=== PATIENT | female | born 1940 | race Caucasian/White ===

== ENCOUNTER 2016-03-26 11:42 | Inpatient (IN) | payer MEDICARE ==
[2016-03-27] MEDS ORDERED: EXEN1INJ2 SQ (12:02)
[2016-03-27] MEDS ORDERED: LISI-519 PO (12:02)
[2016-03-27] MEDS ORDERED: LATA0.002 EACH EYE (12:02)
[2016-03-27] MEDS ORDERED: TIMO0.5S30 EACH EYE (12:02)
[2016-03-27] MEDS ORDERED: ROSU10 PO (12:02)
[2016-03-27] MEDS ORDERED: MULTTAB24 PO (12:02)
[2016-04-01] VITALS (12 sets, daily range): BP systolic 110–157; BP diastolic 54–70; PULSE 54–84; RESP 10–18; TEMP 97.4–99.2; O2SAT 95–100
[2016-04-01] MEDS ORDERED: GLYCOPYRROLATE 0.2 MG/ML VIAL IV ONE (05:00)
[2016-04-01] MEDS ORDERED: VECURONIUM BROMIDE 10 MG VIAL IV ONE (05:00)
[2016-04-01] MEDS ORDERED: HEPARIN SODIUM - SQ 10,000 UNITS/ML VIAL SQ ONE (05:00)
[2016-04-01] MEDS ORDERED: AMINOCAPROIC ACID INJ 250 MG/ML 20 ML VIAL IV ONE (05:00)
[2016-04-01] MEDS ORDERED: ARTIFICIAL TEARS OPTH OINT 3.5 APPLIC/3.5 GM TUBO ONE (05:00)
[2016-04-01] MEDS ORDERED: PROTAMINE SULFATE 250 MG/25 ML VIAL IV ONE (05:00)
[2016-04-01] MEDS ORDERED: ceFAZolin INJ 1,000 MG VIAL IV ONE ×2 (05:00→13:16)
[2016-04-01] MEDS ORDERED: PHENYLEPHRINE HCL 10 MG/ML VIAL IV ONE (05:00)
[2016-04-01] MEDS ORDERED: AMIODARONE HCL 150 MG/3 ML VIAL IV ONE (05:00)
[2016-04-01] MEDS ORDERED: CALCIUM CHLORIDE 10% SOLN 1 GRAM/10 ML SYR IV ONE (05:00)
[2016-04-01] MEDS ORDERED: MAGNESIUM SULFATE 1000 MG/2 ML VIAL (PED) IV ONE (05:00)
[2016-04-01] MEDS ORDERED: DEXMEDETOMIDINE INJ 50 ML IV ONE (05:00)
[2016-04-01] MEDS ORDERED: INSULIN HUMAN REGULAR 1,000 UNITS/10 ML VIAL SQ PRN (06:00)
[2016-04-01] MEDS ORDERED: METOPROLOL TARTRATE 25 MG TAB PO PRN (06:00)
[2016-04-01] MEDS ORDERED: SODIUM CHLORID 0.9% 500 ML IV SCH (06:00)
[2016-04-01] MEDS: LACTATED RINGER'S 1000 ML IV SCH (06:15)
[2016-04-01] MEDS ORDERED: HEPARIN SODIUM - SQ 10,000 UNITS/ML VIAL ONE (06:24)
[2016-04-01] MEDS ORDERED: VANCOMYCIN HCL 1000 MG VIAL ONE (06:24)
[2016-04-01] MEDS ORDERED: methylPREDNISolone SOD SUCC 125 MG/2 ML VIAL ONE (06:24)
[2016-04-01] MEDS ORDERED: EXENINJ SQ (06:32)
[2016-04-01] MEDS ORDERED: CUSTODIOL HTK IRR SOLN 2,000 ML ONE (07:01)
[2016-04-01] MEDS ORDERED: CUSTODIOL HTK IRR SOLN 1,000 ML ONE (07:01)
[2016-04-01] MEDS ORDERED: POTASSIUM CHLORIDE 20 MEQ/10 ML VIAL ONE (07:01)
[2016-04-01] MEDS ORDERED: HEPARIN SODIUM - IV 10,000 UNITS/10 ML VIAL ONE (07:02)
[2016-04-01] MEDS ORDERED: SODIUM BICARBONATE 8.4% INJ 50 ML ONE ×2 (07:02→15:03)
[2016-04-01] MEDS ORDERED: MANNITOL INJ 50 ML ONE (07:02)
[2016-04-01] MEDS ORDERED: ALBUMIN HUMAN 25% 12.5 GM/50 ML BAGP IV ONE (07:03)
[2016-04-01] MEDS ORDERED: NITROGLYCERIN IRRIGATION SCH (08:10)
[2016-04-01] MEDS ORDERED: ceFAZolin 2 GM PREMIX 50 ML IV SCH (08:10)
[2016-04-01] MEDS ORDERED: SODIUM CHLORIDE 0.9% FLUSH 5 ML FLUSH IV FLUSH PRN ×2 (08:10→16:00)
[2016-04-01] MEDS ORDERED: CHLORHEXIDINE GLUCONATE 4% SOLN 120 ML BTL TOPICAL SCH (08:10)
[2016-04-01] MEDS ORDERED: INSULIN REGULAR 100 UNITS in NS 100 ML IV SCH (08:10)
[2016-04-01] MEDS ORDERED: SODIUM CHLORIDE 0.9% IRRIGATION SCH (08:10)
[2016-04-01] MEDS ORDERED: CEFAZOLIN 500 MG in NS IRR BTL 500 ML IRRIGATION SCH (08:10)
[2016-04-01] MEDS ORDERED: METOPROLOL TARTRATE 25 MG TAB PO SCH (08:10)
[2016-04-01] MEDS ORDERED: DILTIAZEM IRRIGATION SCH (08:10)
[2016-04-01] MEDS: SODIUM CHLORIDE 0.9% FLUSH 5 ML FLUSH IV FLUSH SCH ×3 (09:00→21:12)
[2016-04-01] MEDS ORDERED: LACTATED RINGER'S 1000 ML INJ 3,000 ML IV ONE (09:45)
[2016-04-01] MEDS ORDERED: NORMOSOL R INJ 2,000 ML IV ONE (09:45)
[2016-04-01] MEDS ORDERED: SODIUM CHLORIDE 0.9% INJ 200 ML IV ONE (09:45)
[2016-04-01] MEDS ORDERED: SODIUM CHLORID 0.9% 500 ML INJ 500 ML IV ONE (09:45)
[2016-04-01] MEDS ORDERED: SODIUM CHLOR 0.9% 250 ML INJ 1,000 ML IV ONE (09:45)
[2016-04-01] MEDS ORDERED: POTASSIUM CHLOR 40 MEQ PREMIX 100 ML ONE (15:03)
[2016-04-01] MEDS ORDERED: BUPIVACAINE HCL PF 0.5% 30 ML VIAL ONE (15:06)
[2016-04-01] MEDS ORDERED: INSULIN REGULAR (IV INFUSION) 100 UNITS in SODIUM CHLORIDE 0.9% INJ 99 ML IV SCH (16:00)
[2016-04-01] MEDS ORDERED: DEXTROSE 50% IN WATER 50 ML VIAL(D50) IV PUSH PRN (16:00)
[2016-04-01] MEDS ORDERED: Post-op Orders (for Pharmacy) MISC OTHER ONE (16:00)
[2016-04-01] MEDS ORDERED: LACTATED RINGER'S 1000 ML INJ 500 ML IV PRN (16:00)
[2016-04-01] MEDS ORDERED: CALCIUM CHLORIDE INJ 1 GM in SODIUM CHLORIDE 0.9% INJ 100 ML IV PRN (16:00)
[2016-04-01] MEDS ORDERED: MAGNESIUM SULFATE INJ 2 GM in SODIUM CHLORIDE 0.9% INJ 100 ML IV PRN ×4 (16:00)
[2016-04-01] MEDS ORDERED: CALCIUM CHLORIDE 10% 1 GRAM/10 ML VIAL IV PRN (16:00)
[2016-04-01] MEDS ORDERED: POTASSIUM CHLOR 20 MEQ PREMIX 100 ML IV PRN ×3 (16:00)
[2016-04-01] MEDS ORDERED: EPINEPHrine (1:1000) INJ 4 MG in DEXTROSE 5% IN WATER INJ 246 ML IV SCH ×2 (16:00)
[2016-04-01] MEDS ORDERED: POTASSIUM CHLORIDE 20 MEQ CONTROLLED RELEASE TAB PO PRN ×2 (16:00)
[2016-04-01] MEDS ORDERED: CLEVIDIPINE INJ 50 ML IV SCH (16:00)
[2016-04-01] MEDS ORDERED: hydrALAZINE HCL 20 MG/ML VIAL IV PRN (16:00)
[2016-04-01] MEDS ORDERED: fentaNYL CITRATE 1000 MCG/20 ML VIAL ONE (16:01)
[2016-04-01] MEDS ORDERED: MIDAZOLAM HCL 5 MG/5 ML VIAL ONE ×2 (16:01)
[2016-04-01] MEDS: ACETAMINOPHEN 1000 MG/100 ML VIAL IV SCH ×2 (16:30→21:11)
--- NOTE | 2016-04-01 16:41 | RADRPT ---
EXAM DATE/TIME: 04/01/2016 16:02 [facility] COMPARISON: CHEST PA & LAT, March 27, 2016, 13:40. INDICATIONS : Post op CABG MEDICAL HISTORY : Cardiovascular disease. SURGICAL HISTORY : CABG. aortic valve replacement ENCOUNTER: Initial ACUITY: 1 day PAIN SCORE: Non-responsive. LOCATION: Bilateral chest FINDINGS: Portable AP view of the chest demonstrates a normal-sized cardiac silhouette. Right IJ line tip is in the SVC, nasogastric tube tip is in the stomach, an endotracheal tube distal tip measures 4.6 cm fro m the jessica. Lungs are underinflated and there is opacity in the retrocardiac region. No pneumothora x or pleural effusion is seen. There is a right chest tube in place. Other lines overlie the patient. CONCLUSION: 1. Expected changes following recent cardiac surgery with tubes and lines in appropriate position. Ri ght chest tube is present and no pneumothorax is visualized. 2. There is opacity in the left lower lobe representing either atelectasis or consolidation. Germain Noble MD on April 01, 2016 at 16:36 Board Certified Radiologist. This report was verified electronically.
[2016-04-01] MEDS ORDERED: RESP: ALBUTEROL 2.5 MG/IPRATROPIUM 0.5 MG NEB (PRN) NEB (17:00)
[2016-04-01] MEDS ORDERED: METOPROLOL TARTRATE 5 MG/5 ML VIAL IV PUSH PRN (17:00)
[2016-04-01] MEDS ORDERED: ACETAMINOPHEN 650 MG SUPP RECTAL PRN (17:00)
[2016-04-01] MEDS ORDERED: ONDANSETRON HCL 4 MG/2 ML VIAL IV PUSH PRN (17:00)
[2016-04-01] MEDS ORDERED: RESP: RACEPINEPHRINE 2.25% 0.5 ML NEB NEB PRN (17:00)
--- NOTE | 2016-04-01 17:50 | PD.OP ---
cc: Eileen Longo MD; Ivan Torres MD Operative Report Date of Surgery: Apr 01, 2016 Preoperative Diagnosis: (1) Aortic stenosis (2) Diastolic CHF due to valvular disease Postoperative Diagnosis: same Procedure: Minimally invasive AVR with a 21 Trifecta tissue valve ALYSSA left groin cannulation for Fem-Fem bypass Anesthesia: General. Surgeon: Eileen Longo Steam Powerplant Supervisor(s): Ross Ojeda Operation and Findings: The risks, benefits, complications, treatment options, and expected outcomes were discussed with the patient. The possibilities of reaction to medication, pulmonary aspiration, perforation of viscus, bleeding, recurrent infection, the need for additional procedures, failure to diagnose a condition, and creating a complication requiring transfusion or operation were discussed with the patient. The patient concurred with the proposed plan, giving informed consent. The site of surgery properly noted/marked. The patient was taken to Operating Room, identified as Maty Segal and the procedure verified as Minimally Invasive Aortic Valve Replacement. A Time Out was held and the above information confirmed. Standard monitoring lines and Burns catheter were placed. General anesthesia was induced. The patient was prepped and draped in a sterile fashion. A 3 cm incision was performed in the left groin and the femoral artery and vein were exposed. The patient was heparinized for cardiopulmonary bypass. The left femoral artery was cannulated with a 19 [employer] arterial cannula. The left femoral vein was cannulated with a 25 [employer] cannula under ALYSSA guidance. A 6 cm right anterior thoracotomy was performed and the 3rd rib was shingled. The right internal mammary artery and vein were ligated and divided. An Gene retractor was placed followed by a small chest retractor. The pericardium was opened and a pericardial sling was created using interrupted 0 silk sutures. A small 1 cm incision was made at the 6th intercostal space and an LV vent and pericardial suction were placed through this access port. The aorta was dissected posteriorly for crossclamp placement. Antegrade Custodiol cardioplegia were employed. Additionally, hand-held coronary cardioplegia cannula was used during the procedure. The patient was placed on cardiopulmonary bypass. An aortic cross-clamp was applied and the heart was arrested using cold blood cardioplegia delivered through a 14F catheter. The aorta was opened above the sinotubular ridge and the aortic valve was exposed. The right and left coronary was directly cannulated in addition and cardioplegia was administered. On opening the aorta, the valve appeared rheumatic with calcified, retracted cusps. The valve was resected as well as all annular calcification, sized for a 19 mm Trifecta tissue valve which was placed with 2-0 pledgeted Tycron valve sutures. The valve seated well. The aorta was closed with running 4-0 Prolene suture. The patient systemically Re warmed and received a hotshot dose of warm blood cardioplegia. The heart was vigorously deaired with a clamp on. The clamp was removed, deairing continued. The patient was easily weaned from cardiopulmonary bypass. Decannulation was carried out without incident and both the femoral vessels were repaired with 5-0 prolene suture. Protamine was given. There was no adverse reaction. Intraoperative ALYSSA following the procedure showed a well-seated aortic valve with no perivalvular leak and preserved ventricular function. Wound was checked for hemostasis was obtained using electrocautery. The 3rd rib was reapproximated to the sternum and adjacent rib with a 0 Vicryl suture. The fascia and pectoralis were closed with 0 Vicryl. The subcutaneous tissue was closed using a running 3-0 Monocryl suture. The skin was closed with 4-0 Monocryl. The groin was closed in 2 layers. Sterile dressings were placed. At the end of the operation, all sponge, instruments, and needle counts were correct. The patient was transferred to the CVICU in stable condition. Findings: Rheumatic appearing aortic valve Drains: 2-24F Rohan drains Specimens: aortic valve fragments Implants: 19 Trifecta tissue valve Complications: none Disposition: To CVICU in stable condition Pacing Wires: 2 ventricular Eileen Longo MD Apr 01, 2016 17:50
[2016-04-01] MEDS: RESP: ALBUTEROL 2.5 MG/IPRATROPIUM 0.5 MG NEB (SCH) NEB (20:26)
[2016-04-01] MEDS: LATANOPROST 0.005% OPHT SOLN 2.5 ML BTL EACH EYE SCH (21:00)
[2016-04-01] MEDS: AMIODARONE 200 MG TAB PO SCH (22:00)
[2016-04-02] VITALS (11 sets, daily range): BP systolic 102–150; BP diastolic 47–63; PULSE 68–97; RESP 12–18; TEMP 97.5–98.8; O2SAT 93–98
[2016-04-02] MEDS: RESP: ALBUTEROL 2.5 MG/IPRATROPIUM 0.5 MG NEB (SCH) NEB ×4 (03:29→19:06)
[2016-04-02] MEDS: ACETAMINOPHEN 1000 MG/100 ML VIAL IV SCH ×2 (04:00→09:59)
[2016-04-02] MEDS ORDERED: LORazepam 2 MG/ML VIAL ONE (04:08)
[2016-04-02] MEDS ORDERED: LORazepam 2 MG/ML VIAL IV SCH (04:15)
[2016-04-02 04:43] LABS: MEAN CELL VOLUME 92.1 FL (80.0-100.0); MEAN CORPUSCULAR HEMOGLOBIN 31.8 PG (27.0-34.0); MEAN CORPUSCULAR HGB CONC 34.6 % (32.0-36.0); PLATELET COUNT 73 TH/MM3 (150-450); RED BLOOD COUNT 3.69 MIL/MM3 (4.00-5.30); RED CELL DISTRIBUTION WIDTH 14.1 % (11.6-17.2); WHITE BLOOD COUNT 9.8 TH/MM3 (4.0-11.0)
[2016-04-02 04:55] LABS: REVIEW FLAG FINAL
[2016-04-02 05:21] LABS: BICARBONATE 25.8 MEQ/L (21.0-32.0); MAGNESIUM 2.4 MG/DL (1.5-2.5); POTASSIUM 4.2 MEQ/L (3.5-5.1)
[2016-04-02] MEDS: AMIODARONE 200 MG TAB PO SCH ×3 (05:45→21:10)
[2016-04-02] MEDS: LACTATED RINGER'S 1000 ML IV SCH (05:45)
[2016-04-02] MEDS: PANTOPRAZOLE SOD 40 MG DELAYED RELEASE TAB PO SCH (05:45)
[2016-04-02 05:52] LABS: CKMB 17.1 NG/ML (0.5-3.6)
--- NOTE | 2016-04-02 06:02 | PD.CONS ---
[facility] Service Critical Care Medicine Consult Requested By TC Surgery Reason for Consult Generalized seizures Primary Care Physician Fernando Vickers M.D. History of Present Illness 75 y/o woman underwent uneventful AVR 04/01. Extubated easily last night and breathing comfortably. Normal hemodynamics. Developed AMS associated with unresponsiveness, attempting to bite tongue, 4 limb rigidity, tachycardia, hypertension. Resolved after ativan 1 mg but remained minimally responsive. Controls airway well, swallows secretions. Past Family Social History Allergies: Coded Allergies: Sulfa (Verified Allergy, Severe, Rash, 04/01/16) Physical Exam Vital Signs Vital Signs Date Time Temp Pulse Resp B/P Pulse Ox O2 Delivery O2 Flow Rate FiO2 04/02/16 03:00 98.8 70 18 115/49 96 04/02/16 01:00 96 Nasal Cannula 2.00 04/01/16 23:00 81 04/01/16 23:00 98.1 82 16 116/54 99 130/66 04/01/16 20:08 99 Nasal Cannula 4.00 04/01/16 20:06 97 Nasal Cannula 4 04/01/16 20:06 97 Nasal Cannula 4.00 04/01/16 19:40 40 04/01/16 19:38 99 40 04/01/16 19:30 98.4 70 10 114/63 99 110/57 04/01/16 19:30 50 04/01/16 19:15 99 Mechanical Ventilator 50 04/01/16 19:00 84 04/01/16 18:00 73 04/01/16 17:55 99 50 04/01/16 17:00 54 04/01/16 16:00 50 04/01/16 16:00 74 04/01/16 15:50 99 50 04/01/16 15:45 99.2 74 16 121/70 95 132/61 Physical Exam PE: Gen: Unresponsive. Sats 95%. Head: Atraumatic, normal. Tongue protruding purposefully from mouth 3-4 cm. Teeth attempting to bite tongue gently however. Neck: Rigid, airway widely patent. Lungs: Clear, no wheezes or crackles. Mild hyperventilation. Heart: NL S1S2, RRR. Abdomen: Soft, nondistended. BS active. Extremities: Warm, well perfused. Skin: No rashes or hives. Neuro: Pupils 3 mm, reactive. Both legs extended, rigid. No DTRs. No clonus. Toes neutral to plantar stimulation. Uppers slightly flexed, rigid. Prior to event she attempted to cover her eyes with her hands; appeared purposeful. All resolved after ativan 1 mg, but remained minimally responsive (post-ictal?). Laboratory Laboratory Tests Test 04/01/16 04/01/16 04/02/16 06:15 06:20 04:30 Blood Type A POSITIVE A POSITIVE Antibody Screen NEGATIVE Crossmatch Leukocyte-Reduced Red Blood Cells Blood Bank Comment White Blood Count 9.8 Red Blood Count 3.69 Hemoglobin 11.7 Hematocrit 34.0 Mean Corpuscular Volume 92.1 Mean Corpuscular Hemoglobin 31.8 Mean Corpuscular Hemoglobin 34.6 Concent Red Cell Distribution Width 14.1 Platelet Count 73 Mean Platelet Volume 7.9 Sodium Level 149 Potassium Level 4.2 Chloride Level 112 Carbon Dioxide Level 25.8 Anion Gap 11 Blood Urea Nitrogen 20 Creatinine 0.99 Estimat Glomerular Filtration 55 Rate Random Glucose 109 Calcium Level 8.1 Phosphorus Level 2.6 Magnesium Level 2.4 Total Creatine Kinase 769 Troponin I 3.05 Result Diagram: 04/02/1642904/02/16 043 Assessment and Plan Assessment and Plan Assessment: 1. Generalized seizures vs serotonin syndrome. ( No clonus or fever). 2. S/P AVR with normal hemodynamics. 3. Acute encephalopathy. Plan: 1. Check Mag, phos. 2. Ativan 1 mg iv for recurrent symptoms. 3. No anti-psychotic meds. 4. Check creatine kinase. 5. EEG. 6. NPO. 7. Neurology Consult. Overall impression: Unresponsive with 4 limb rigidity and tongue protrusion. Not a typical seizure. Airway well controlled and normal hemodynamics. Acts more like the spectrum of NMS or Serotonin Syndrome, but no preceding psychotropic meds unless in OR. Immediate cessation with benzo. Persistent AMS. Critically ill and at risk for airway difficulty/hypoxemia if symptoms recur. Critical care 40 mins. Jabier Fields MD Apr 02, 2016 06:02
[2016-04-02] MEDS ORDERED: LORazepam 2 MG/ML VIAL IV PUSH PRN (06:15)
--- NOTE | 2016-04-02 06:15 | RADRPT ---
EXAM DATE/TIME: 04/02/2016 05:17 [facility] COMPARISON: CHEST SINGLE AP, April 01, 2016, 16:02. INDICATIONS : Shortness of breath. MEDICAL HISTORY : Cardiovascular disease. Diabetes, Heart murmur SURGICAL HISTORY : CABG. Aortic valve replacement, Lithotripsy ENCOUNTER: Subsequent ACUITY: 1 week PAIN SCORE: Non-responsive. LOCATION: Bilateral chest FINDINGS: A single view of the chest demonstrates minimal bibasilar densities. Endotracheal tube and nasogastri c tube have been removed. Right jugular central line seen with tip in the SVC. The cardiomediastinal contours are unremarkable. Osseous structures are intact. CONCLUSION: 1. Minimal bibasilar atelectasis. Luis Manzanares MD on April 02, 2016 at 6:12 Board Certified Radiologist. This report was verified electronically.
[2016-04-02] MEDS: LATANOPROST 0.005% OPHT SOLN 2.5 ML BTL EACH EYE SCH ×2 (09:04→21:00)
[2016-04-02] MEDS: SODIUM CHLORIDE 0.9% FLUSH 5 ML FLUSH IV FLUSH SCH ×3 (09:05→21:12)
[2016-04-02] MEDS: ASPIRIN 81 MG CHEW TAB PO SCH (09:05)
[2016-04-02] MEDS: ATORVASTATIN 20 MG TAB PO SCH (09:05)
--- NOTE | 2016-04-02 09:11 | MG ---
cc: ROBERT MCCAULEY M.D. Lab No: [id number] Date: 04/02/2016 : 1940 Sex: F Photic stimulation. No sedation. Hyperventilation was not performed. Awake, drowsy asleep study. When the biological technician arrived in the room the patient was talking and awake, not able to answer simple questions, only knows her name. Status post AVR 04/01/2016. On 04/02/2016 there was a change in mental status, unresponsive, tachycardic, attempting to bite her tongue. She has a history of hypertension, renal disease, diabetes, valvular disease. Currently on aspirin, Lipitor, Protonix, Cordarone, abluterol, cephazolin. DESCRIPTION OF RECORD There is some minor slowing, predominately a 5 Hz theta frequency. Some artifact seen. She looks like she is in sinus tachycardia on her one lead EKG. Some minor movement artifact. No evidence seen of any epileptic activity. Photic stimulation mild driving response. IMPRESSION Mildly abnormal EEG, may be due to mild encephalopathy but there is no evidence of any epileptiform features in this recording. Clinical correlation. MD ZULAY Coleman/SANDRA /8:52 AM /9:02 AM
[2016-04-02] MEDS: MULTIVITAMIN HEMATINIC THERAPEUTIC TAB PO SCH (09:59)
[2016-04-02] MEDS: TIMOLOL MALEATE 0.5% OPHT SOLN 5 ML BTL EACH EYE SCH (09:59)
[2016-04-02] MEDS ORDERED: BISACODYL 10 MG SUPP RECTAL PRN (10:15)
[2016-04-02] MEDS ORDERED: SOD PHOSPHATE/SOD BIPHOSPHATE (ADULT) ENEMA 133ML RECTAL PRN (10:15)
[2016-04-02] MEDS ORDERED: DEXTROSE 50% IN WATER 50 ML VIAL(D50) IV PRN (10:15)
[2016-04-02] MEDS ORDERED: POTASSIUM CHLORIDE 20 MEQ CONTROLLED RELEASE TAB PO ONE (10:15)
[2016-04-02] MEDS ORDERED: MAGNESIUM HYDROXIDE SUSP 30 ML CUP PO PRN (10:15)
[2016-04-02] MEDS: METOPROLOL TARTRATE 25 MG TAB PO SCH ×2 (10:15→21:10)
[2016-04-02] MEDS ORDERED: BISACODYL EC 5 MG TABEC PO PRN (10:15)
[2016-04-02] MEDS: FUROSEMIDE 40 MG/4 ML VIAL IV PUSH ONE ×2 (10:15→11:15)
[2016-04-02] MEDS ORDERED: GLUCAGON 1 MG/ML VIAL OTHER PRN (10:15)
[2016-04-02] MEDS ORDERED: PILL SPLITTER OTHER PRN (10:30)
--- NOTE | 2016-04-02 11:10 | EKG ---
Date Performed: 04/02/2016 Time Performed: 05:56:28 PTAGE: 75 years EKG: Sinus rhythm Right bundle branch block Abnormal ECG PREVIOUS TRACING : 03/27/2016 11.50 Compared to prior tracing no significant change DOCTOR: Ivan Torres Interpretating Date/Time 04/02/2016 11:08:31
[2016-04-02] MEDS: DOCUSATE SODIUM 100 MG CAP PO SCH ×2 (11:15→21:10)
[2016-04-02] MEDS ORDERED: KETOROLAC TROMETHAMINE 30 MG/ML (IVP) VIAL IV PUSH PRN (13:15)
[2016-04-02] MEDS: INSULIN ASPART SUPPLEMENTAL SCALE SQ SCH ×3 (14:00→22:20)
[2016-04-02] MEDS ORDERED: ATROPINE SULFATE 1 MG/10 ML SYRINGE ONE (15:28)
[2016-04-02] MEDS ORDERED: EPINEPHrine HCL (1:10,000) 1 MG/10 ML SYRINGE ONE (15:29)
--- NOTE | 2016-04-02 15:57 | OTSOAPIP ---
TIME SESSION COMPLETED: 1550 TREATMENT TIME: 0 MINS. CHART REVIEWED. PATIENT WAS NOT AVAILABLE SECONDARY TO BEING OFF THE UNIT FOR A PROCEDURE. PLAN: WILL SEE PATIENT NEXT TREATMENT DAY INTERDISCIPLINARY COMMUNICATION: SPOKE WITH NURSING Therapist: ONEYDA MCCARTHY OTR/Paula Signature on file
--- NOTE | 2016-04-02 16:15 | RADRPT ---
EXAM DATE/TIME: 04/02/2016 15:38 [facility] COMPARISON: No previous studies available for comparison. INDICATIONS : Trouble waking up from surgery. RADIATION DOSE: 56.35 CTDIvol (mGy) MEDICAL HISTORY : Cardiovascular disease. dibetes,renal disease SURGICAL HISTORY : CABG orthopedic ENCOUNTER: Initial ACUITY: 1 day PAIN SCALE: 5/10 LOCATION: cranial TECHNIQUE: Multiple contiguous axial images were obtained of the head. Using automated exposure control and adj ustment of the mA and/or kV according to patient size, radiation dose was kept as low as reasonably a chievable to obtain optimal diagnostic quality images. FINDINGS: CEREBRUM: The ventricles are normal for age. No evidence of midline shift, mass lesion, hemorrhage or acute in farction. No extra-axial fluid collections are seen. POSTERIOR FOSSA: The cerebellum and brainstem are intact. The 4th ventricle is midline. The cerebellopontine angle i s unremarkable. EXTRACRANIAL: The visualized portion of the orbits is intact. SKULL: The calvaria is intact. No evidence of skull fracture. CONCLUSION: Normal examination for a patient of this age. Vanna Pearl MD on April 02, 2016 at 16:13 Board Certified Radiologist. This report was verified electronically.
[2016-04-02] MEDS: ACETAMINOPHEN 325 MG TAB PO PRN (16:27)
--- NOTE | 2016-04-02 16:54 | PD.CAR.PN ---
CVT Progress Note CVT: POD #: 1 Subjective/Hospital Course: 75/ f history of aortic valve disease, presented to Dr Ivan Torres with c/o of dizzy spells and "fainting " , also some fatique spells x 1 year, underwent cardiac cath by Dr Torres which shoed normal LVEF echo showed TADEO 0.72cm2 surgery : 04/01 Minimally invasive AVR with a 21 Trifecta tissue valve ALYSSA left groin cannulation for Fem-Fem bypass 04/02 Extubated easily last night and breathing comfortably. Normal hemodynamics. Developed AMS associated with unresponsiveness, attempting to bite tongue, 4 limb rigidity, tachycardia, hypertension. Resolved after ativan 1 mg but remained minimally responsive. Controls airway well, swallows secretions. remained confused this am , with repetitive repeating numbers, names, re- orients at times , states she has had problems with anesthesia in past ( ether) EEG neg for seizures, some mild encephalopathy CT head neg minimize narcotics leave in CVICU today PT/OT speech consulted Objective: GENERAL: intermittent confused and anxious / repetitive speech, very restless SKIN: Warm and dry./ dressing to right upper chest wall HEAD: Normocephalic. EYES: No scleral icterus. No injection or drainage. NECK: Supple, trachea midline. No JVD or lymphadenopathy. CARDIOVASCULAR: Regular rate and rhythm without murmurs, gallops, or rubs. RESPIRATORY: Breath sounds equal bilaterally. No accessory muscle use. chest tube in place / drained 400cc/ 12 hrs GASTROINTESTINAL: Abdomen soft, non-tender, nondistended. MUSCULOSKELETAL: No cyanosis, or edema. BACK: Nontender without obvious deformity. No CVA tenderness. Vital Signs Date Time Temp Pulse Resp B/P Pulse Ox O2 Delivery O2 Flow Rate FiO2 04/02/16 15:24 85 04/02/16 15:22 97.7 84 16 118/49 04/02/16 15:14 95 Nasal Cannula 3.00 04/02/16 11:23 76 04/02/16 11:10 98.3 78 16 102/47 93 04/02/16 09:08 98 Nasal Cannula 2.00 04/02/16 07:15 79 04/02/16 07:15 97 Nasal Cannula 4.00 04/02/16 07:15 97.5 78 14 125/53 97 Arterial Line 04/02/16 03:00 68 04/02/16 03:00 98.8 70 18 115/49 96 04/02/16 01:00 96 Nasal Cannula 2.00 04/01/16 23:00 81 04/01/16 23:00 98.1 82 16 116/54 99 130/66 04/01/16 20:08 99 Nasal Cannula 4.00 04/01/16 20:06 97 Nasal Cannula 4 04/01/16 20:06 97 Nasal Cannula 4.00 04/01/16 19:40 40 04/01/16 19:38 99 40 04/01/16 19:30 98.4 70 10 114/63 99 110/57 04/01/16 19:30 50 04/01/16 19:15 99 Mechanical Ventilator 50 04/01/16 19:00 84 04/01/16 18:00 73 04/01/16 17:55 99 50 04/01/16 17:00 54 Result Diagram: 04/02/1642904/02/16 043 Telemetry: NSR (1) s/p mini AVR Plan: ASA, low dose BB OOB aggressive pulm toileting nebs, ezpap acapella (2) Diastolic CHF due to valvular disease (3) Aortic stenosis (4) Altered mental state Plan: improving, avoid narcotic, CT Brain unremarkable EEG neg for seizures consult PT/OT speech Vanna Abebe Apr 02, 2016 16:54
--- NOTE | 2016-04-02 17:47 | PD.CONS ---
History of Present Illness Service Neurology Consult Requested By [facility] Reason for Consult altered mental status Primary Care Physician Fernando Vickers M.D. History of Present Illness History of Present Illness 75 y/o woman underwent uneventful AVR 04/01. Extubated easily last night and breathing comfortably. Normal hemodynamics. per [facility] notes: Developed AMS associated with unresponsiveness, attempting to bite tongue, 4 limb rigidity, tachycardia, hypertension. Resolved after ativan 1 mg but remained minimally responsive. ct brain naicp. eeg- no sz activity. presently, she is sitting up and eating dinner. denies hx of stroke/tia/ or sz. denies being on any psychotropic medication. Past Family Social History Allergies: Coded Allergies: Sulfa (Verified Allergy, Severe, Rash, 04/01/16) denies any tob/illicit drug use. Review of Systems All other ROS: ROS reviewed as documented in chart Past Family Social History Allergies: Coded Allergies: Sulfa (Verified Allergy, Severe, Rash, 04/01/16) Active Ordered Medications Current Medications Medications (Trade) Dose Ordered Sig/[place] Route Start Time Stop Time Status Last Admin (NS Flush) 2 ml BID IV FLUSH 04/01/16 21:00 04/02/16 09:05 IV Flush 2 ml 2 ml UNSCH PRN IV FLUSH 04/01/16 16:00 (Ancef Inj/NS Inj) 100 ml @ 200 mls/hr Q8H IV 04/01/16 21:00 04/03/16 05:29 04/02/16 13:14 (Aspirin Chew) 81 mg DAILY PO 04/02/16 09:00 04/02/16 09:05 (Protonix) 40 mg DAILY@06 PO 04/02/16 06:00 (Cordarone) 400 mg Q8HR PO 04/01/16 22:00 04/02/16 14:43 (Tylenol) 650 mg Q4H PRN PO 04/01/16 17:00 04/02/16 16:27 Ondansetron HCl 4 mg 4 mg Q6H PRN IV PUSH 04/01/16 17:00 Magnesium Sulfate 2 gm/Sodium Chloride 104 ml @ 100 mls/hr UNSCH PRN IV 04/01/16 16:00 (Magnesium Sulfate Inj/NS Inj) 104 ml @ 50 mls/hr UNSCH PRN IV 04/01/16 16:00 (Xalatan 0.005% Opth Soln) 1 drop BID EACH EYE 04/01/16 21:00 04/02/16 09:04 (Theragran Hematinic) 1 tab DAILY PO 04/02/16 09:00 04/02/16 09:59 (Timoptic 0.5% Opth Soln) 1 drop DAILY EACH EYE 04/02/16 09:00 04/02/16 09:59 (Lipitor) 20 mg DAILY PO 04/02/16 09:00 04/02/16 09:05 (Ativan Inj) 1 mg Q15M PRN IV PUSH 04/02/16 06:15 (Colace) 100 mg BID PO 04/02/16 10:15 04/02/16 11:15 (Milk Of Magnesia Liq) 30 ml DAILY PRN PO 04/02/16 10:15 (Dulcolax Ec) 5 mg UNSCH PRN PO 04/02/16 10:15 04/02/16 11:15 (Miralax) 17 gm DAILY PO 04/03/16 09:00 (Fleets Enema (Adult)) 133 ml UNSCH PRN RECTAL 04/02/16 10:15 (Lopressor) 12.5 mg BID PO 04/02/16 10:15 (NovoLOG SUPPLEMENTAL SCALE) 1 02,06,10,14,18,22 SQ 04/02/16 14:00 04/03/16 13:59 (D50w (Vial) Inj) 25 ml UNSCH PRN IV 04/02/16 10:15 (Glucagon Inj) 1 mg UNSCH PRN OTHER 04/02/16 10:15 (NovoLOG SUPPLEMENTAL SCALE) 1 ACHS SQ 04/03/16 16:00 (Pill Splitter) 1 ea UNSCH PRN OTHER 04/02/16 10:30 (Toradol Inj) 15 mg Q6H PRN IV PUSH 04/02/16 13:15 04/04/16 13:14 04/02/16 13:13 Family History n/c Exam I&O / VS 04/01/16 04/01/16 04/02/16 15:00 23:00 07:00 Intake Total 2404 ml 1225 ml Output Total 530 ml 1150 ml Balance 1874 ml 75 ml Intake Oral 240 ml IV Total 2404 ml 985 ml Output Urine Total 320 ml 750 ml Gastric Drainage Total 50 ml Chest Tube Drainage Total 160 ml 400 ml # Bowel Movements 0 0 Vital Signs Date Time Temp Pulse Resp B/P Pulse Ox O2 Delivery O2 Flow Rate FiO2 04/02/16 15:24 85 04/02/16 15:22 97.7 84 16 118/49 04/02/16 15:14 95 Nasal Cannula 3.00 04/02/16 11:23 76 04/02/16 11:10 98.3 78 16 102/47 93 04/02/16 09:08 98 Nasal Cannula 2.00 04/02/16 07:15 79 04/02/16 07:15 97 Nasal Cannula 4.00 04/02/16 07:15 97.5 78 14 125/53 97 Arterial Line 04/02/16 03:00 68 04/02/16 03:00 98.8 70 18 115/49 96 04/02/16 01:00 96 Nasal Cannula 2.00 04/01/16 23:00 81 04/01/16 23:00 98.1 82 16 116/54 99 130/66 04/01/16 20:08 99 Nasal Cannula 4.00 04/01/16 20:06 97 Nasal Cannula 4 04/01/16 20:06 97 Nasal Cannula 4.00 04/01/16 19:40 40 04/01/16 19:38 99 40 04/01/16 19:30 98.4 70 10 114/63 99 110/57 04/01/16 19:30 50 04/01/16 19:15 99 Mechanical Ventilator 50 04/01/16 19:00 84 04/01/16 18:00 73 04/01/16 17:55 99 50 General: Alert and Oriented, No acute distress Eye: EOMI Respiratory: Non-labored respirations Musculoskeletal: ROM Neurologic: Alert, Oriented, Normal motor, No focal defects, CN II-XII intact Psychiatric: Cooperative, Appropriate mood & affect Exam Comments alert, sitting up eating dinner. ox 3. initially didn't realize she had already had the operation. follows, pleasant, able to name and repeat. follows on both side. face sym, od 4-3.5mm, os 6-5mm- hx of left ocular trauma, does had diplopia from this as well, jay to gravity, no drift, no neglect, msr sym Review/Management Diagnosis/Plan: (1) Altered mental state Plan: transient acute encephalopathy resolved possibly related to anesthetic agents causing sz? 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 reluctant to get cta's as it could comprise renal function recs medical management antiplatelet agent when feasible follow exam (2) s/p mini AVR (3) Diastolic CHF due to valvular disease (4) Aortic stenosis Problem Qualifiers (1) Altered mental state: Qualified Code: R41.0 - Disorientation (2) Aortic stenosis: Qualified Code: I35.0 - Aortic valve stenosis, unspecified etiology Ric Ca MD Apr 02, 2016 17:47
[2016-04-03] VITALS (14 sets, daily range): BP systolic 116–142; BP diastolic 54–64; PULSE 61–74; RESP 12–18; TEMP 97.9–99.4; O2SAT 94–96
[2016-04-03] MEDS: INSULIN ASPART SUPPLEMENTAL SCALE SQ SCH ×6 (02:00→21:00)
[2016-04-03 04:51] LABS: AUTOMATED NEUTROPHIL # 9.1 TH/MM3 (1.8-7.7); BASOPHIL % 0.1 % (0.0-2.0); HEMATOCRIT 27.3 % (35.0-46.0); LYMPH % 11.8 % (9.0-44.0); LYMPHOCYTE # 1.3 TH/MM3 (1.0-4.8); MEAN CELL VOLUME 92.2 FL (80.0-100.0); MEAN CORPUSCULAR HEMOGLOBIN 31.6 PG (27.0-34.0); MEAN CORPUSCULAR HGB CONC 34.3 % (32.0-36.0); MONO % 6.1 % (0.0-8.0); PLATELET COUNT 59 TH/MM3 (150-450); RED BLOOD COUNT 2.96 MIL/MM3 (4.00-5.30); RED CELL DISTRIBUTION WIDTH 13.9 % (11.6-17.2); WHITE BLOOD COUNT 11.1 TH/MM3 (4.0-11.0)
[2016-04-03 05:01] LABS: HEMO FLAGS AUTO DIFF
[2016-04-03] MEDS: AMIODARONE 200 MG TAB PO SCH ×2 (05:19→21:56)
[2016-04-03] MEDS: PANTOPRAZOLE SOD 40 MG DELAYED RELEASE TAB PO SCH (05:19)
[2016-04-03 05:20] LABS: BICARBONATE 27.1 MEQ/L (21.0-32.0); MAGNESIUM 2.5 MG/DL (1.5-2.5); POTASSIUM 4.3 MEQ/L (3.5-5.1)
[2016-04-03 05:45] LABS: PLATELET ESTIMATE SMEAR LOW (NORMAL); PLATELET MORPHOLOGY NORMAL (NORMAL); SCAN/DIFF AUTO DIFF CONFIRMED
[2016-04-03] MEDS ORDERED: BISACODYL 10 MG SUPP RECTAL PRN (07:45)
[2016-04-03] MEDS ORDERED: MAGNESIUM HYDROXIDE SUSP 30 ML CUP PO PRN (07:45)
[2016-04-03] MEDS ORDERED: GLUCAGON 1 MG/ML VIAL OTHER PRN ×2 (07:45→11:00)
[2016-04-03] MEDS ORDERED: SOD PHOSPHATE/SOD BIPHOSPHATE (ADULT) ENEMA 133ML RECTAL PRN (07:45)
[2016-04-03] MEDS ORDERED: BISACODYL EC 5 MG TABEC PO PRN (07:45)
[2016-04-03] MEDS ORDERED: DEXTROSE 50% IN WATER 50 ML VIAL(D50) IV PRN (07:45)
[2016-04-03] MEDS ORDERED: MULTIVITAMINS/MINERALS THERAPEUTIC TAB PO SCH ×2 (09:00)
[2016-04-03] MEDS ORDERED: POLYETHYLENE GLYCOL 17 GM PKG PO SCH (09:00)
[2016-04-03] MEDS: METOPROLOL TARTRATE 25 MG TAB PO SCH ×2 (09:00→21:56)
[2016-04-03] MEDS: ASPIRIN 81 MG CHEW TAB PO SCH (09:00)
[2016-04-03] MEDS: SODIUM CHLORIDE 0.9% FLUSH 5 ML FLUSH IV FLUSH SCH ×2 (09:13→21:58)
[2016-04-03] MEDS: MULTIVITAMIN HEMATINIC THERAPEUTIC TAB PO SCH (09:16)
[2016-04-03] MEDS: ATORVASTATIN 20 MG TAB PO SCH (09:16)
[2016-04-03] MEDS: DOCUSATE SODIUM 100 MG CAP PO SCH (09:16)
[2016-04-03] MEDS: TIMOLOL MALEATE 0.5% OPHT SOLN 5 ML BTL EACH EYE SCH (09:32)
[2016-04-03] MEDS: LATANOPROST 0.005% OPHT SOLN 2.5 ML BTL EACH EYE SCH ×2 (09:33→21:56)
--- NOTE | 2016-04-03 10:53 | PD.CAR.PN ---
CVT Progress Note CVT: POD #: 2 Subjective/Hospital Course: 75/ f history of aortic valve disease, presented to Dr Ivan Torres with c/o of dizzy spells and "fainting " , also some fatique spells x 1 year, underwent cardiac cath by Dr Torres which shoed normal LVEF echo showed TADEO 0.72cm2 surgery : 04/01 Minimally invasive AVR with a 21 Trifecta tissue valve ALYSSA left groin cannulation for Fem-Fem bypass 04/02 Extubated easily last night and breathing comfortably. Normal hemodynamics. Developed AMS associated with unresponsiveness, attempting to bite tongue, 4 limb rigidity, tachycardia, hypertension. Resolved after ativan 1 mg but remained minimally responsive. Controls airway well, swallows secretions. remained confused this am , with repetitive repeating numbers, names, re- orients at times , states she has had problems with anesthesia in past ( ether) EEG neg for seizures, some mild encephalopathy CT head neg minimize narcotics leave in CVICU today PT/OT speech consulted 04/03 more alert and oriented today, appreciate neurology input dc buenrostro cath, has small intermittent air leak in pleuravac + v wires transfer to stepdown, gentle diuresis continue insulin coverage Objective: GENERAL: SKIN: Warm and dry./ dressing in place left chest area/ + wires HEAD: Normocephalic. EYES: No scleral icterus. No injection or drainage. NECK: Supple, trachea midline. No JVD or lymphadenopathy. CARDIOVASCULAR: Regular rate and rhythm without murmurs, gallops, or rubs. RESPIRATORY: chest tube in place / drained + small intermittent air leak Breath sounds equal bilaterally. No accessory muscle use. GASTROINTESTINAL: Abdomen soft, non-tender, nondistended. MUSCULOSKELETAL: No cyanosis, or edema. BACK: Nontender without obvious deformity. No CVA tenderness. Vital Signs Date Time Temp Pulse Resp B/P Pulse Ox O2 Delivery O2 Flow Rate FiO2 04/03/16 08:00 71 04/03/16 08:00 96 Nasal Cannula 2.00 04/03/16 08:00 97.9 71 16 133/55 96 04/03/16 07:43 96 Nasal Cannula 4.00 04/03/16 03:00 74 04/03/16 03:00 98.4 74 12 116/54 94 04/02/16 23:00 98.6 75 12 105/50 94 04/02/16 23:00 95 04/02/16 19:11 93 Nasal Cannula 4.00 04/02/16 19:00 98.7 91 12 150/63 94 04/02/16 19:00 97 04/02/16 19:00 94 Nasal Cannula 2.00 04/02/16 15:24 85 04/02/16 15:22 97.7 84 16 118/49 04/02/16 15:14 95 Nasal Cannula 3.00 04/02/16 11:23 76 04/02/16 11:10 98.3 78 16 102/47 93 Labs: Laboratory Tests Test 04/03/16 04:26 White Blood Count 11.1 TH/MM3 (4.0-11.0) Red Blood Count 2.96 MIL/MM3 (4.00-5.30) Hemoglobin 9.4 GM/DL (11.6-15.3) Hematocrit 27.3 % (35.0-46.0) Mean Corpuscular Volume 92.2 FL (80.0-100.0) Mean Corpuscular Hemoglobin 31.6 PG (27.0-34.0) Mean Corpuscular Hemoglobin 34.3 % Concent (32.0-36.0) Red Cell Distribution Width 13.9 % (11.6-17.2) Platelet Count 59 TH/MM3 (150-450) Mean Platelet Volume 9.0 FL (7.0-11.0) Neutrophils (%) (Auto) 82.0 % (16.0-70.0) Lymphocytes (%) (Auto) 11.8 % (9.0-44.0) Monocytes (%) (Auto) 6.1 % (0.0-8.0) Eosinophils (%) (Auto) 0.0 % (0.0-4.0) Basophils (%) (Auto) 0.1 % (0.0-2.0) Neutrophils # (Auto) 9.1 TH/MM3 (1.8-7.7) Lymphocytes # (Auto) 1.3 TH/MM3 (1.0-4.8) Monocytes # (Auto) 0.7 TH/MM3 (0-0.9) Eosinophils # (Auto) 0.0 TH/MM3 (0-0.4) Basophils # (Auto) 0.0 TH/MM3 (0-0.2) CBC Comment AUTO DIFF Differential Comment AUTO DIFF CONFIRMED Platelet Estimate LOW (NORMAL) Platelet Morphology Comment NORMAL (NORMAL) Sodium Level 145 MEQ/L (136-145) Potassium Level 4.3 MEQ/L (3.5-5.1) Chloride Level 110 MEQ/L (98-107) Carbon Dioxide Level 27.1 MEQ/L (21.0-32.0) Anion Gap 8 MEQ/L (5-15) Blood Urea Nitrogen 39 MG/DL (7-18) Creatinine 0.94 MG/DL (0.50-1.00) Estimat Glomerular Filtration 58 ML/MIN (>89) Rate Random Glucose 179 MG/DL (74-106) Calcium Level 8.3 MG/DL (8.5-10.1) Magnesium Level 2.5 MG/DL (1.5-2.5) Result Diagram: 04/03/1642504/03/16425 Telemetry: NSR (1) s/p mini AVR Plan: ASA, low dose BB OOB aggressive pulm toileting nebs, ezpap acapella (2) Diastolic CHF due to valvular disease Plan: gentle diuresis (3) Aortic stenosis (4) Altered mental state Plan: improving, avoid narcotic, CT Brain unremarkable EEG neg for seizures consult PT/OT speech appreciate neurology in put (5) Thrombocytopenia Plan: hold ASA, until PLT >100K (6) Diabetes mellitus Plan: insulin ss Problem Qualifiers (1) Aortic stenosis: Qualified Code: I35.0 - Aortic valve stenosis, unspecified etiology (2) Altered mental state: Qualified Code: R41.0 - Disorientation Vanna Abebe Apr 03, 2016 10:53
[2016-04-03] MEDS ORDERED: DEXTROSE 50% IN WATER 50 ML VIAL(D50) IV PUSH PRN (11:00)
[2016-04-03] MEDS: FUROSEMIDE 40 MG/4 ML VIAL IV PUSH SCH (11:07)
[2016-04-03] MEDS: POTASSIUM CHLORIDE 20 MEQ CONTROLLED RELEASE TAB PO SCH (11:07)
--- NOTE | 2016-04-03 12:38 | HHI.FF ---
Face to Face Verification Diagnosis: (1) Aortic stenosis (2) Diastolic CHF due to valvular disease (3) s/p mini AVR (4) Thrombocytopenia (5) Diabetes mellitus Physical Therapy Order: Evaluate and Treat Occupational Therapy Order: Evaluate and Treat Home Health Nursing Order: Signs/symptoms of disease process Diabetic education Wound care and dressing changes Instructions: Heart and Vascular Surgery patients *Special attention to sternal dressing Mandatory frequency Assess and evaluation, 4 days in a row The next week 3X week 2 times a week for 4 weeks 1 time a week for 5 weeks Schedule Heart and Vascular patients for full 60 day certification period Initial visit Review Open Heart Surgery Discharge Instructions (Sternal precautions, Activity, Elastic hose, Incision care, Driving, Incentive spirometry, Smoking, [place], Work and other) Need Betadine to paint incision Medication reconciliation Importance of follow up care/ check on appointments Make calendar record temperature daily When to call [facility] nurse, review instructions, phone list Incentive Spirometry, demonstration Visit 1- Begin discharge instruction for patient family and/ or caregiver using teach back method- Signs and symptoms of infection Disease characteristics Medicines and side effects Foods and nutrition/ appetite Infection control/ hand washing/ hygiene Visit 2- Continue teaching Discharge instructions- include additional information on smoking cessation , sternal dressing (sternal vac) Visit 3- Continue teaching- Cough and deep breathing, incision monitoring. Choose my plate Visit 4- Continue teaching- Discuss limitations Discuss how they are feeling Discuss progress toward goals Remaining visits- continue teaching and monitoring Incentive spirometry Q1 hr x 10, while awake, also use acapella device hourly whole awake Sternal Breast Bone Precautions: NO pushing or pulling, ( pt must use sternal pillow to support chest with all activities and with coughing ( takes up to 3 months breast bone to heal ) Daily incision care: ok to shower daily, no tub bath. Wash all incisions with liquid dial soap, clean wash cloth to each site, rinse and pat dry. Observe for any signs of infection, such as drainage which is dark yellow, reeves, green or foul smelling. Immediately report to the surgeon any drainage from the chest incision, or legs, and for any abnormal drainage from the chest tube sites. Notify surgeon if any temp >101.5 degrees F. When specialty dressing removed/ or if you do not have one, continue to shower daily as above, then rinse and pat incision dry and paint with betadine daily x 5 days. Allow steri strips to fall off if you have any. Avoid lotions, creams, salves, oils, etc. for the first month Please see attached forms for additional instructions regarding post Open Heart specialty wound vacuum dressings. CASSIDY or Prevena , Dressing to be removed by Nursing staff on For Dr. Longo patients , please obtain CBC, BMP, PA & Lat CXR in 2 weeks, results to Dr. Longo ( prescription will be given) ( ) (Tele: [phone]) , Valve replacement pts will need 2decho in 2 weeks with results to Dr. Longo . Please obtain 2 d echo at your medical information specialist office if possible F/U appointment: as per ME instructions: PCP in 2 weeks, CV surgeon 2 weeks, Upholstery Covers Inspector 3-4 weeks For any questions regarding incisions/ dressing / meds / post op care or above Symptoms, Thursday 8am-5pm Heart & Vascular Surgery Office ( Dr. Adan & Dr. Longo), After Hours / Nights (5pm -8am) Weekends and Holidays Please call [facility] Card[facility] Unit (C[facility]) Charge Nurse I have seen patient Maty Segal on 04/03/16. My clinical findings support the need for the requested home health care services because: Patient has SOB Deconditioned w/ increased weakness I certify that my clinical findings support that this patient is homebound because: Post-op weakness Impaired cognitive ability/safety Vanna Abebe Apr 03, 2016 12:38
--- NOTE | 2016-04-03 13:24 | RADRPT ---
EXAM DATE/TIME: 04/03/2016 12:21 [place] COMPARISON: CHEST SINGLE AP, April 01, 2016, 16:02. CHEST SINGLE AP, April 02, 2016, 5:17. CT BRAIN W/O CON TRAST, April 02, 2016, 15:38. INDICATIONS : Chest tube to water seal. MEDICAL HISTORY : Cardiovascular disease. SURGICAL HISTORY : CABG. ENCOUNTER: Initial ACUITY: 2 days PAIN SCORE: 0/10 LOCATION: Bilateral chest FINDINGS: AP upright portable view of the chest demonstrate a central line projecting over the SVC. The lungs a re mildly hypoinflated as compared to the prior exam with mild by basilar atelectasis. The heart size is normal. Pulmonary vasculature is normal. Osseous structures are unremarkable. CONCLUSION: Mild by basilar atelectasis and overall hypoinflation of the lungs. Otherwise unremar kable exam. Vanna Pearl MD on April 03, 2016 at 13:20 Board Certified Radiologist. This report was verified electronically.
[2016-04-03] MEDS ORDERED: INSULIN ASPART SUPPLEMENTAL SCALE SQ SCH (16:00)
[2016-04-03] MEDS: INSULIN DETEMIR 100 UNITS/ML VIAL SQ SCH (21:57)
[2016-04-04] VITALS (24 sets, daily range): BP systolic 113–155; BP diastolic 55–72; PULSE 62–70; RESP 16–20; TEMP 97.4–98.2; O2SAT 93–100
[2016-04-04] MEDS: ACETAMINOPHEN 325 MG TAB PO PRN (05:28)
[2016-04-04] MEDS: PANTOPRAZOLE SOD 40 MG DELAYED RELEASE TAB PO SCH (05:28)
[2016-04-04] MEDS: INSULIN ASPART SUPPLEMENTAL SCALE SQ SCH ×4 (05:36→21:15)
[2016-04-04 07:26] LABS: AUTOMATED NEUTROPHIL # 6.2 TH/MM3 (1.8-7.7); BASOPHIL % 0.1 % (0.0-2.0); EOSINOPHIL % 0.1 % (0.0-4.0); HEMATOCRIT 24.8 % (35.0-46.0); LYMPH % 13.9 % (9.0-44.0); LYMPHOCYTE # 1.1 TH/MM3 (1.0-4.8); MEAN CORPUSCULAR HGB CONC 34.8 % (32.0-36.0); MONO % 6.9 % (0.0-8.0); PLATELET COUNT 49 TH/MM3 (150-450); RED CELL DISTRIBUTION WIDTH 14.1 % (11.6-17.2); WHITE BLOOD COUNT 7.9 TH/MM3 (4.0-11.0)
[2016-04-04 07:43] LABS: HEMO FLAGS AUTO DIFF
[2016-04-04 07:58] LABS: BICARBONATE 26.7 MEQ/L (21.0-32.0); MAGNESIUM 2.1 MG/DL (1.5-2.5); POTASSIUM 3.9 MEQ/L (3.5-5.1)
--- NOTE | 2016-04-04 08:20 | HHI.PR ---
Review/Management Diagnosis/Plan: (1) Altered mental state Plan: transient acute encephalopathy resolved possibly related to anesthetic agents causing sz? 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 reluctant to get cta's as it could comprise renal function recs neuro stable antiplatelet agent when feasible doing well will sign off (2) s/p mini AVR (3) Diastolic CHF due to valvular disease (4) Aortic stenosis Subjective Subjective Comments No acute events reported No headache No chest pain No dyspnea no hx of psych/mood meds Active Medications Current Medications Medications (Trade) Dose Ordered Sig/[place] Route Start Time Stop Time Status Last Admin (NS Flush) 2 ml BID IV FLUSH 04/01/16 21:00 04/03/16 21:58 (NS Flush) 2 ml UNSCH PRN IV FLUSH 04/01/16 16:00 (Aspirin Chew) 81 mg DAILY PO 04/02/16 09:00 04/02/16 09:05 (Protonix) 40 mg DAILY@06 PO 04/02/16 06:00 04/04/16 05:28 (Tylenol) 650 mg Q4H PRN PO 04/01/16 17:00 04/04/16 05:28 Ondansetron HCl 4 mg 4 mg Q6H PRN IV PUSH 04/01/16 17:00 Magnesium Sulfate 2 gm/Sodium Chloride 104 ml @ 100 mls/hr UNSCH PRN IV 04/01/16 16:00 (Magnesium Sulfate Inj/NS Inj) 104 ml @ 50 mls/hr UNSCH PRN IV 04/01/16 16:00 (Xalatan 0.005% Opth Soln) 1 drop BID EACH EYE 04/01/16 21:00 04/03/16 21:56 (Theragran Hematinic) 1 tab DAILY PO 04/02/16 09:00 04/03/16 09:16 (Timoptic 0.5% Opth Soln) 1 drop DAILY EACH EYE 04/02/16 09:00 04/03/16 09:32 (Lipitor) 20 mg DAILY PO 04/02/16 09:00 04/03/16 09:16 (Milk Of Magnesia Liq) 30 ml DAILY PRN PO 04/02/16 10:15 (Lopressor) 12.5 mg BID PO 04/02/16 10:15 04/03/16 21:56 (Pill Splitter) 1 ea UNSCH PRN OTHER 04/02/16 10:30 (Colace) 100 mg BID PO 04/04/16 09:00 (Milk Of Magnesia Liq) 30 ml DAILY PRN PO 04/03/16 07:45 (Dulcolax Ec) 5 mg UNSCH PRN PO 04/03/16 07:45 (Miralax) 17 gm DAILY PO 04/04/16 09:00 (Fleets Enema (Adult)) 133 ml UNSCH PRN RECTAL 04/03/16 07:45 (Cordarone) 400 mg Q12HR PO 04/03/16 21:00 04/03/16 21:56 (Lasix Inj) 40 mg DAILY IV PUSH 04/03/16 10:45 04/03/16 11:07 (KCl) 20 meq DAILY PO 04/03/16 10:45 04/03/16 11:07 (Levemir Inj) 5 units Q12HR SQ 04/03/16 21:00 04/03/16 21:57 (D50w (Vial) Inj) 25 ml UNSCH PRN IV PUSH 04/03/16 11:00 (Glucagon Inj) 1 mg UNSCH PRN OTHER 04/03/16 11:00 Allergies Allergies Coded Allergies Sulfa (Verified Allergy, Severe, Rash, 04/01/16) Review of Systems All other ROS: ROS reviewed as documented in chart Exam I&O / VS 04/03/16 04/03/16 04/04/16 15:00 23:00 07:00 Intake Total 875 ml 240 ml Output Total 1075 ml 50 ml Balance -200 ml 190 ml Intake Oral 875 ml 240 ml Output Urine Total 975 ml Chest Tube Drainage Total 100 ml 50 ml # Voids 2 # Bowel Movements 2 0 Vital Signs Date Time Temp Pulse Resp B/P Pulse Ox O2 Delivery O2 Flow Rate FiO2 04/04/16 07:22 94 21 04/04/16 05:02 69 04/04/16 04:00 97.9 69 16 136/65 93 04/04/16 04:00 69 04/04/16 01:00 69 04/04/16 00:00 69 04/03/16 23:00 98.5 69 16 118/57 94 04/03/16 21:31 21 04/03/16 19:00 94 Room Air 04/03/16 19:00 99.4 73 16 142/63 94 04/03/16 19:00 73 04/03/16 18:00 61 04/03/16 17:00 66 04/03/16 16:25 68 04/03/16 15:33 98.1 70 18 118/64 96 04/03/16 15:32 70 04/03/16 14:00 68 04/03/16 13:00 65 04/03/16 12:16 66 04/03/16 12:00 98.0 71 16 128/62 96 04/03/16 12:00 66 General: Alert and Oriented, No acute distress Eye: EOMI Respiratory: Non-labored respirations Musculoskeletal: ROM Neurologic: Alert, Oriented, Normal motor, No focal defects, CN II-XII intact Psychiatric: Cooperative, Appropriate mood & affect Exam Comments alert, sitting up eating breakfast, knows the name of her cts surgeon and the surgery that was performed, follows, pleasant, able to name and repeat. follows on both side. face sym, od 4-3.5mm, os 6-5mm- hx of left ocular trauma, jay to gravity, no drift, no neglect, msr sym Objective Micro and Labs Laboratory Tests Test 04/04/16 06:28 White Blood Count 7.9 Red Blood Count 2.70 Hemoglobin 8.6 Hematocrit 24.8 Mean Corpuscular Volume 92.0 Mean Corpuscular Hemoglobin 32.0 Mean Corpuscular Hemoglobin 34.8 Concent Red Cell Distribution Width 14.1 Platelet Count 49 Mean Platelet Volume 9.2 Neutrophils (%) (Auto) 79.0 Lymphocytes (%) (Auto) 13.9 Monocytes (%) (Auto) 6.9 Eosinophils (%) (Auto) 0.1 Basophils (%) (Auto) 0.1 Neutrophils # (Auto) 6.2 Lymphocytes # (Auto) 1.1 Monocytes # (Auto) 0.5 Eosinophils # (Auto) 0.0 Basophils # (Auto) 0.0 CBC Comment AUTO DIFF Sodium Level 145 Potassium Level 3.9 Chloride Level 110 Carbon Dioxide Level 26.7 Anion Gap 8 Blood Urea Nitrogen 32 Creatinine 0.72 Estimat Glomerular Filtration 79 Rate Random Glucose 120 Calcium Level 7.6 Magnesium Level 2.1 Problem Qualifiers (1) Altered mental state: Qualified Code: R41.0 - Disorientation (2) Aortic stenosis: Qualified Code: I35.0 - Aortic valve stenosis, unspecified etiology Ric Ca MD Apr 04, 2016 08:20
[2016-04-04] MEDS: POLYETHYLENE GLYCOL 17 GM PKG PO SCH (08:30)
[2016-04-04] MEDS: ASPIRIN 81 MG CHEW TAB PO SCH (08:32)
[2016-04-04] MEDS: METOPROLOL TARTRATE 25 MG TAB PO SCH ×2 (08:32→21:17)
[2016-04-04] MEDS: ATORVASTATIN 20 MG TAB PO SCH (08:32)
[2016-04-04] MEDS: DOCUSATE SODIUM 100 MG CAP PO SCH ×2 (08:32→21:16)
[2016-04-04] MEDS: INSULIN DETEMIR 100 UNITS/ML VIAL SQ SCH ×2 (08:33→21:16)
[2016-04-04] MEDS: AMIODARONE 200 MG TAB PO SCH ×2 (08:33→21:16)
[2016-04-04] MEDS: FUROSEMIDE 40 MG/4 ML VIAL IV PUSH SCH (08:33)
[2016-04-04] MEDS: POTASSIUM CHLORIDE 20 MEQ CONTROLLED RELEASE TAB PO SCH (08:33)
[2016-04-04] MEDS: MULTIVITAMIN HEMATINIC THERAPEUTIC TAB PO SCH (08:33)
[2016-04-04] MEDS: SODIUM CHLORIDE 0.9% FLUSH 5 ML FLUSH IV FLUSH SCH ×2 (08:33→21:16)
[2016-04-04] MEDS: LATANOPROST 0.005% OPHT SOLN 2.5 ML BTL EACH EYE SCH ×2 (08:39→21:00)
[2016-04-04] MEDS: TIMOLOL MALEATE 0.5% OPHT SOLN 5 ML BTL EACH EYE SCH (08:39)
[2016-04-04 09:48] LABS: PLATELET ESTIMATE SMEAR LOW (NORMAL); PLATELET MORPHOLOGY NORMAL (NORMAL); SCAN/DIFF AUTO DIFF CONFIRMED
--- NOTE | 2016-04-04 10:45 | PD.CAR.PN ---
CVT Progress Note CVT: POD #: 3 Subjective/Hospital Course: 75/ f history of aortic valve disease, presented to Dr Ivan Torres with c/o of dizzy spells and "fainting " , also some fatique spells x 1 year, underwent cardiac cath by Dr Torres which shoed normal LVEF echo showed TADEO 0.72cm2 surgery : 04/01 Minimally invasive AVR with a 21 Trifecta tissue valve ALYSSA left groin cannulation for Fem-Fem bypass 04/02 Extubated easily last night and breathing comfortably. Normal hemodynamics. Developed AMS associated with unresponsiveness, attempting to bite tongue, 4 limb rigidity, tachycardia, hypertension. Resolved after ativan 1 mg but remained minimally responsive. Controls airway well, swallows secretions. remained confused this am , with repetitive repeating numbers, names, re- orients at times , states she has had problems with anesthesia in past ( ether) EEG neg for seizures, some mild encephalopathy CT head neg minimize narcotics leave in CVICU today PT/OT speech consulted 04/03 more alert and oriented today, appreciate neurology input dc buenrostro cath, has small intermittent air leak in pleuravac + v wires transfer to stepdown, gentle diuresis continue insulin coverage 04/04 blood sugars improved PLT count 49/ will discuss with Dr Longo ASA on hold , no sign of bleeding HGB 8.6 / on multivitamin with iron eval for removal of tubes no air leak in pleuravac Objective: GENERAL: up in chair A&O x 3 SKIN: Warm and dry./ incision intact right upper chest wall / HEAD: Normocephalic. EYES: No scleral icterus. No injection or drainage. NECK: Supple, trachea midline. No JVD or lymphadenopathy. CARDIOVASCULAR: Regular rate and rhythm without murmurs, gallops, or rubs. + v wires RESPIRATORY: Breath sounds equal bilaterally. No accessory muscle use. chest tube to water seal, no air leak GASTROINTESTINAL: Abdomen soft, non-tender, nondistended. MUSCULOSKELETAL: No cyanosis, or edema. BACK: Nontender without obvious deformity. No CVA tenderness. Vital Signs Date Time Temp Pulse Resp B/P Pulse Ox O2 Delivery O2 Flow Rate FiO2 04/04/16 08:13 98.2 69 18 140/65 95 04/04/16 08:13 95 Room Air 04/04/16 07:22 94 21 04/04/16 05:02 69 04/04/16 04:00 97.9 69 16 136/65 93 04/04/16 04:00 69 04/04/16 01:00 69 04/04/16 00:00 69 04/03/16 23:00 98.5 69 16 118/57 94 04/03/16 21:31 21 04/03/16 19:00 94 Room Air 04/03/16 19:00 99.4 73 16 142/63 94 04/03/16 19:00 73 04/03/16 18:00 61 04/03/16 17:00 66 04/03/16 16:25 68 04/03/16 15:33 98.1 70 18 118/64 96 04/03/16 15:32 70 04/03/16 14:00 68 04/03/16 13:00 65 04/03/16 12:16 66 04/03/16 12:00 98.0 71 16 128/62 96 04/03/16 12:00 66 Labs: Laboratory Tests Test 04/04/16 06:28 White Blood Count 7.9 TH/MM3 (4.0-11.0) Red Blood Count 2.70 MIL/MM3 (4.00-5.30) Hemoglobin 8.6 GM/DL (11.6-15.3) Hematocrit 24.8 % (35.0-46.0) Mean Corpuscular Volume 92.0 FL (80.0-100.0) Mean Corpuscular Hemoglobin 32.0 PG (27.0-34.0) Mean Corpuscular Hemoglobin 34.8 % Concent (32.0-36.0) Red Cell Distribution Width 14.1 % (11.6-17.2) Platelet Count 49 TH/MM3 (150-450) Mean Platelet Volume 9.2 FL (7.0-11.0) Neutrophils (%) (Auto) 79.0 % (16.0-70.0) Lymphocytes (%) (Auto) 13.9 % (9.0-44.0) Monocytes (%) (Auto) 6.9 % (0.0-8.0) Eosinophils (%) (Auto) 0.1 % (0.0-4.0) Basophils (%) (Auto) 0.1 % (0.0-2.0) Neutrophils # (Auto) 6.2 TH/MM3 (1.8-7.7) Lymphocytes # (Auto) 1.1 TH/MM3 (1.0-4.8) Monocytes # (Auto) 0.5 TH/MM3 (0-0.9) Eosinophils # (Auto) 0.0 TH/MM3 (0-0.4) Basophils # (Auto) 0.0 TH/MM3 (0-0.2) CBC Comment AUTO DIFF Differential Comment AUTO DIFF CONFIRMED Platelet Estimate LOW (NORMAL) Platelet Morphology Comment NORMAL (NORMAL) Sodium Level 145 MEQ/L (136-145) Potassium Level 3.9 MEQ/L (3.5-5.1) Chloride Level 110 MEQ/L (98-107) Carbon Dioxide Level 26.7 MEQ/L (21.0-32.0) Anion Gap 8 MEQ/L (5-15) Blood Urea Nitrogen 32 MG/DL (7-18) Creatinine 0.72 MG/DL (0.50-1.00) Estimat Glomerular Filtration 79 ML/MIN (>89) Rate Random Glucose 120 MG/DL (74-106) Calcium Level 7.6 MG/DL (8.5-10.1) Magnesium Level 2.1 MG/DL (1.5-2.5) Result Diagram: 04/04/1662704/04/16627 (1) s p mini AVR Plan: ASA, low dose BB OOB aggressive pulm toileting nebs, ezpap acapella (2) Diastolic CHF due to valvular disease Plan: improved (3) Aortic stenosis (4) Altered mental state Plan: resolved CT Brain unremarkable EEG neg for seizures consult PT/OT speech appreciate neurology in put neuro has signed off (5) Thrombocytopenia Plan: hold ASA, until PLT >100K PLT 49 (6) Diabetes mellitus Plan: insulin ss / low dose levemir bid Problem Qualifiers (1) Aortic stenosis: Qualified Code: I35.0 - Aortic valve stenosis, unspecified etiology (2) Altered mental state: Qualified Code: R41.0 - Disorientation Vanna Abebe Apr 04, 2016 10:45
[2016-04-04] MEDS ORDERED: ACETAMINOPHEN/HYDROcodone 325 MG/5 MG TAB PO PRN ×2 (21:30)
[2016-04-05] VITALS (29 sets, daily range): BP systolic 105–147; BP diastolic 54–68; PULSE 59–85; RESP 15–20; TEMP 97.8–99.1; O2SAT 93–96
--- NOTE | 2016-04-05 05:00 | RADRPT ---
EXAM DATE/TIME: 04/05/2016 03:58 [facility] COMPARISON: CHEST SINGLE AP, April 03, 2016, 12:21. INDICATIONS : Shortness of breath, possible pulmonary disease. MEDICAL HISTORY : Cardiovascular disease. SURGICAL HISTORY : CABG. ENCOUNTER: Subsequent ACUITY: 3 days PAIN SCORE: Non-responsive. LOCATION: Bilateral chest FINDINGS: The cardiac silhouette is enlarged in transverse diameter. There is subsegmental atelectasis in the l eft base. The right basilar atelectasis has resolved. No pleural effusions are identified. CONCLUSION: 1. Cardiomegaly. Resolving bibasilar atelectasis Medardo Simon MD on April 05, 2016 at 4:58 Board Certified Radiologist. This report was verified electronically.
[2016-04-05] MEDS: PANTOPRAZOLE SOD 40 MG DELAYED RELEASE TAB PO SCH (05:35)
[2016-04-05] MEDS: INSULIN ASPART SUPPLEMENTAL SCALE SQ SCH ×4 (06:09→20:47)
[2016-04-05 06:41] LABS: MEAN CELL VOLUME 92.1 FL (80.0-100.0); MEAN CORPUSCULAR HEMOGLOBIN 32.3 PG (27.0-34.0); MEAN CORPUSCULAR HGB CONC 35.1 % (32.0-36.0); PLATELET COUNT 48 TH/MM3 (150-450); RED BLOOD COUNT 2.72 MIL/MM3 (4.00-5.30); RED CELL DISTRIBUTION WIDTH 13.6 % (11.6-17.2); WHITE BLOOD COUNT 6.2 TH/MM3 (4.0-11.0)
[2016-04-05 06:54] LABS: REVIEW FLAG FINAL
--- NOTE | 2016-04-05 08:59 | PD.CAR.PN ---
CVT Progress Note Subjective/Hospital Course: 75/ f history of aortic valve disease, presented to Dr Ivan Torres with c/o of dizzy spells and "fainting " , also some fatique spells x 1 year, underwent cardiac cath by Dr Torres which shoed normal LVEF echo showed TADEO 0.72cm2 surgery : 04/01 Minimally invasive AVR with a 21 Trifecta tissue valve ALYSSA left groin cannulation for Fem-Fem bypass 04/02 Extubated easily last night and breathing comfortably. Normal hemodynamics. Developed AMS associated with unresponsiveness, attempting to bite tongue, 4 limb rigidity, tachycardia, hypertension. Resolved after ativan 1 mg but remained minimally responsive. Controls airway well, swallows secretions. remained confused this am , with repetitive repeating numbers, names, re- orients at times , states she has had problems with anesthesia in past ( ether) EEG neg for seizures, some mild encephalopathy CT head neg minimize narcotics leave in CVICU today PT/OT speech consulted 04/03 more alert and oriented today, appreciate neurology input dc buenrostro cath, has small intermittent air leak in pleuravac + v wires transfer to stepdown, gentle diuresis continue insulin coverage 04/04 blood sugars improved PLT count 49/ will discuss with Dr Longo ASA on hold , no sign of bleeding HGB 8.6 / on multivitamin with iron eval for removal of tubes no air leak in pleuravac 04/05 Feels lightheaded today Monitor vitals Likely discharge in am Objective: Vital Signs Date Time Temp Pulse Resp B/P Pulse Ox O2 Delivery O2 Flow Rate FiO2 04/05/16 08:00 66 04/05/16 07:46 95 21 04/05/16 07:00 95 Room Air 04/05/16 07:00 98.0 66 15 144/68 95 04/05/16 07:00 66 04/05/16 06:00 62 04/05/16 05:00 61 04/05/16 04:00 64 04/05/16 03:24 97.8 61 16 109/55 96 04/05/16 03:00 60 04/05/16 02:00 59 04/05/16 01:00 63 04/05/16 00:00 61 04/04/16 23:37 98.2 63 16 113/55 95 04/04/16 23:00 62 04/04/16 22:25 20 04/04/16 22:00 65 04/04/16 21:00 67 04/04/16 20:50 Room Air 04/04/16 20:45 68 04/04/16 20:45 97.4 70 20 155/72 100 04/04/16 17:00 67 04/04/16 16:33 97.6 69 20 139/65 97 04/04/16 16:00 68 04/04/16 15:00 67 04/04/16 14:00 66 04/04/16 13:00 65 04/04/16 12:00 64 04/04/16 11:25 97.4 64 16 122/58 95 04/04/16 11:00 65 04/04/16 10:00 64 04/04/16 09:00 68 Labs: Laboratory Tests Test 04/05/16 05:53 White Blood Count 6.2 TH/MM3 (4.0-11.0) Red Blood Count 2.72 MIL/MM3 (4.00-5.30) Hemoglobin 8.8 GM/DL (11.6-15.3) Hematocrit 25.0 % (35.0-46.0) Mean Corpuscular Volume 92.1 FL (80.0-100.0) Mean Corpuscular Hemoglobin 32.3 PG (27.0-34.0) Mean Corpuscular Hemoglobin 35.1 % Concent (32.0-36.0) Red Cell Distribution Width 13.6 % (11.6-17.2) Platelet Count 48 TH/MM3 (150-450) Mean Platelet Volume 9.3 FL (7.0-11.0) Result Diagram: 04/05/16 0553 04/04/16 0628 (1) s p mini AVR Plan: ASA, low dose BB OOB aggressive pulm toileting nebs, ezpap acapella (2) Diastolic CHF due to valvular disease Plan: improved (3) Aortic stenosis (4) Altered mental state Plan: resolved CT Brain unremarkable EEG neg for seizures consult PT/OT speech appreciate neurology in put neuro has signed off (5) Thrombocytopenia Plan: hold ASA, until PLT >100K PLT 49 (6) Diabetes mellitus Plan: insulin ss / low dose levemir bid Problem Qualifiers (1) Aortic stenosis: Qualified Code: I35.0 - Aortic valve stenosis, unspecified etiology (2) Altered mental state: Qualified Code: R41.0 - Disorientation Andi Adan MD Apr 05, 2016 08:59
[2016-04-05] MEDS: ASPIRIN 81 MG CHEW TAB PO SCH (09:00)
[2016-04-05] MEDS: FUROSEMIDE 40 MG/4 ML VIAL IV PUSH SCH (09:41)
[2016-04-05] MEDS: POTASSIUM CHLORIDE 20 MEQ CONTROLLED RELEASE TAB PO SCH (09:42)
[2016-04-05] MEDS: POLYETHYLENE GLYCOL 17 GM PKG PO SCH (09:42)
[2016-04-05] MEDS: SODIUM CHLORIDE 0.9% FLUSH 5 ML FLUSH IV FLUSH SCH ×2 (09:42→20:48)
[2016-04-05] MEDS: ATORVASTATIN 20 MG TAB PO SCH (09:42)
[2016-04-05] MEDS: INSULIN DETEMIR 100 UNITS/ML VIAL SQ SCH ×2 (09:42→20:46)
[2016-04-05] MEDS: AMIODARONE 200 MG TAB PO SCH ×2 (09:42→20:46)
[2016-04-05] MEDS: MULTIVITAMIN HEMATINIC THERAPEUTIC TAB PO SCH (09:42)
[2016-04-05] MEDS: DOCUSATE SODIUM 100 MG CAP PO SCH ×2 (09:43→20:45)
[2016-04-05] MEDS: TIMOLOL MALEATE 0.5% OPHT SOLN 5 ML BTL EACH EYE SCH (09:43)
[2016-04-05] MEDS: METOPROLOL TARTRATE 25 MG TAB PO SCH ×2 (09:43→20:46)
[2016-04-05] MEDS: LATANOPROST 0.005% OPHT SOLN 2.5 ML BTL EACH EYE SCH ×2 (09:43→20:49)
[2016-04-06] VITALS (12 sets, daily range): BP systolic 135–159; BP diastolic 62–71; PULSE 61–70; RESP 16–20; TEMP 96.7–98.2; O2SAT 96
[2016-04-06] MEDS: PANTOPRAZOLE SOD 40 MG DELAYED RELEASE TAB PO SCH (05:44)
[2016-04-06] MEDS: INSULIN ASPART SUPPLEMENTAL SCALE SQ SCH ×2 (06:09→11:00)
[2016-04-06] MEDS ORDERED: HYDR-3516 PO (08:10)
[2016-04-06] MEDS ORDERED: AMIO200T PO (08:10)
[2016-04-06] MEDS ORDERED: Aspirin Chew PO (08:10)
--- NOTE | 2016-04-06 08:11 | HHI.DS ---
Discharge Summary Admission Date Apr 01, 2016 at 05:34 Discharge Date: Apr 06, 2016 Admitting Diagnosis CBC/BMP: 04/05/16 0553 04/04/16 0628 Significant Findings Laboratory Tests Test 04/04/16 04/05/16 06:28 05:53 Red Blood Count 2.70 MIL/MM3 2.72 MIL/MM3 (4.00-5.30) (4.00-5.30) Hemoglobin 8.6 GM/DL 8.8 GM/DL (11.6-15.3) (11.6-15.3) Hematocrit 24.8 % 25.0 % (35.0-46.0) (35.0-46.0) Platelet Count 49 TH/MM3 48 TH/MM3 (150-450) (150-450) Neutrophils (%) (Auto) 79.0 % (16.0-70.0) Platelet Estimate LOW (NORMAL) Chloride Level 110 MEQ/L (98-107) Blood Urea Nitrogen 32 MG/DL (7-18) Estimat Glomerular Filtration 79 ML/MIN (>89) Rate Random Glucose 120 MG/DL (74-106) Calcium Level 7.6 MG/DL (8.5-10.1) Hospital Course 75/ f history of aortic valve disease, presented to Dr Ivan Torres with c/o of dizzy spells and "fainting " , also some fatique spells x 1 year, underwent cardiac cath by Dr Torres which shoed normal LVEF echo showed TADEO 0.72cm2 surgery : 04/01 Minimally invasive AVR with a 21 Trifecta tissue valve ALYSSA left groin cannulation for Fem-Fem bypass 04/02 Extubated easily last night and breathing comfortably. Normal hemodynamics. Developed AMS associated with unresponsiveness, attempting to bite tongue, 4 limb rigidity, tachycardia, hypertension. Resolved after ativan 1 mg but remained minimally responsive. Controls airway well, swallows secretions. remained confused this am , with repetitive repeating numbers, names, re- orients at times , states she has had problems with anesthesia in past ( ether) EEG neg for seizures, some mild encephalopathy CT head neg minimize narcotics leave in CVICU today PT/OT speech consulted 04/03 more alert and oriented today, appreciate neurology input dc buenrostro cath, has small intermittent air leak in pleuravac + v wires transfer to stepdown, gentle diuresis continue insulin coverage 04/04 blood sugars improved PLT count 49/ will discuss with Dr Longo ASA on hold , no sign of bleeding HGB 8.6 / on multivitamin with iron eval for removal of tubes no air leak in pleuravac 04/05 Feels lightheaded today Monitor vitals Likely discharge in am 04/06 Discharge home Discharge Disposition: Disch w/ Home Health Serv Discharge Instructions DIET: Follow Instructions for: Heart Healthy Diet Speech Therapy-Diet Recommenda: Regular Activities you can perform: Full Weight Bearing, Shower Only-No Bath Activities to avoid: Strenuous Activity, Driving Follow up Referrals: Cardiology - 4 Weeks with Ivan Torres MD PCP Follow-up - 2 Weeks with leatha obsch New Medications: Amiodarone (Amiodarone) 200 Mg Tab 400 MG PO Q12HR z Days 14 TAB Hydrocodone-Acetaminophen (Hydrocodone-Acetaminophen) 5-325 mg Tab 1 TAB PO Q4H PRN PAIN SCALE 1 TO 5 #60 TAB ([Aspirin Chew]) 81 MG CHEW 81 MG PO DAILY z #90 TAB.CHEW Continued Medications: Exenatide Inj (Bydureon Inj) 2 Mg Vial 2 MG SQ Q7D Blood Sugar Management #4 Ref 0 INJECTION Latanoprost Opth Drops (Latanoprost Opth Drops) 0.005% Drops 1 DROP EACH EYE BID Refrigerate until opened. Glaucoma #2.5 Ref 0 ML Lisinopril (Lisinopril) 5 Mg Tab 5 MG PO DAILY Blood Pressure Management #30 Ref 0 TAB Multiple Vitamins W/ Minerals (Multi For Her) 1 Tab Tab 1 TAB PO DAILY Nutritional Supplement Rosuvastatin (Crestor) 10 Mg Tab 10 MG PO DAILY Cholesterol Management #30 Ref 0 TAB Timolol Opth Drops (Timolol Opth Drops) 0.5 % Soln 1 DROP EACH EYE DAILY Glaucoma #1 Ref 0 BOTTLE Andi Adan MD Apr 06, 2016 08:11
[2016-04-06] MEDS: POLYETHYLENE GLYCOL 17 GM PKG PO SCH (09:00)
[2016-04-06] MEDS: ASPIRIN 81 MG CHEW TAB PO SCH (09:00)
[2016-04-06] MEDS: SODIUM CHLORIDE 0.9% FLUSH 5 ML FLUSH IV FLUSH SCH (09:58)
[2016-04-06] MEDS: FUROSEMIDE 40 MG/4 ML VIAL IV PUSH SCH (09:58)
[2016-04-06] MEDS: ATORVASTATIN 20 MG TAB PO SCH (09:59)
[2016-04-06] MEDS: AMIODARONE 200 MG TAB PO SCH (09:59)
[2016-04-06] MEDS: METOPROLOL TARTRATE 25 MG TAB PO SCH (09:59)
[2016-04-06] MEDS: MULTIVITAMIN HEMATINIC THERAPEUTIC TAB PO SCH (09:59)
[2016-04-06] MEDS: DOCUSATE SODIUM 100 MG CAP PO SCH (09:59)
[2016-04-06] MEDS: POTASSIUM CHLORIDE 20 MEQ CONTROLLED RELEASE TAB PO SCH (09:59)
[2016-04-06] MEDS: INSULIN DETEMIR 100 UNITS/ML VIAL SQ SCH (09:59)
[2016-04-06] MEDS: LATANOPROST 0.005% OPHT SOLN 2.5 ML BTL EACH EYE SCH (10:00)
[2016-04-06] MEDS: TIMOLOL MALEATE 0.5% OPHT SOLN 5 ML BTL EACH EYE SCH (10:00)
== END 2016-04-06 12:58 | disposition home health service (06) | DRG 219 ==
LOC: HSDI 04-01 05:34 → HCVR 04-01 16:26 → HCPC 04-03 10:53
PROVIDERS: ADMIT Thoracic Surgery (Cardiothoracic Vascular Surgery); ATTEND Thoracic Surgery (Cardiothoracic Vascular Surgery)
PROC: B246ZZ4 Ultrasonography of Right and Left Heart, Transesophageal (ICD-10-PCS; 2016-04-01)
PROC: 02RF08Z Replacement of Aortic Valve with Zooplastic Tissue, Open Approach (ICD-10-PCS; principal; 2016-04-01 08:34)
PROC: 5A1221Z Performance of Cardiac Output, Continuous (ICD-10-PCS; 2016-04-01 08:34)
DX: I35.0 Nonrheumatic aortic (valve) stenosis (principal); G93.40 Encephalopathy, unspecified; I50.30 Unspecified diastolic (congestive) heart failure; D69.6 Thrombocytopenia, unspecified; E11.9 Type 2 diabetes mellitus without complications; H40.9 Unspecified glaucoma; I10 Essential (primary) hypertension; R00.0 Tachycardia, unspecified; Z85.828 Personal history of other malignant neoplasm of skin
CPT/HCPCS: 36430; 70450; 71010; 76937; 80048; 82550; 82552; 82948; 83735; 84100; 84484; 85014; 85025; 85027; 86850; 86900; 86901; 86920; 88305; 88311; 93005; 93318; 94002; 94150; 94640; 94664; 94667; 94668; 95819; C9399; J0131; J0171; J0282; J0461; J0690; J1250; J1644; J1815; J1817; J1885; J1940; J2060; J2150; J2250; J2370; J2720; J2930; J3010; J3370; J3475; J3480; J7040; J7050; J7120; P9016; P9047

== ENCOUNTER → 2016-03-27 | Outpatient (CLI) | payer MEDICARE ==
[~2016-03-27] MED LIST: AMIO200T PO; Aspirin Chew PO; EXEN1INJ2 SQ; EXENINJ SQ; HYDR-3516 PO; LATA0.002 EACH EYE; LISI-519 PO; MULTTAB24 PO; ROSU10 PO; TIMO0.5S30 EACH EYE
[2016-03-27 12:44] LABS: AUTOMATED NEUTROPHIL # 2.5 TH/MM3 (1.8-7.7); BASOPHIL % 0.7 % (0.0-2.0); EOSINOPHIL # 0.1 TH/MM3 (0-0.4); EOSINOPHIL % 3.3 % (0.0-4.0); HEMATOCRIT 37.2 % (35.0-46.0); HEMO FLAGS DIFF FINAL; LYMPH % 27.9 % (9.0-44.0); LYMPHOCYTE # 1.2 TH/MM3 (1.0-4.8); MEAN CELL VOLUME 92.1 FL (80.0-100.0); MEAN CORPUSCULAR HEMOGLOBIN 32.1 PG (27.0-34.0); MEAN CORPUSCULAR HGB CONC 34.8 % (32.0-36.0); MONO % 8.7 % (0.0-8.0); NEUT % 59.4 % (16.0-70.0); PLATELET COUNT 118 TH/MM3 (150-450); RED BLOOD COUNT 4.04 MIL/MM3 (4.00-5.30); RED CELL DISTRIBUTION WIDTH 13.6 % (11.6-17.2); WHITE BLOOD COUNT 4.2 TH/MM3 (4.0-11.0)
[2016-03-27 12:54] LABS: APTT (PATIENT) 26.5 SEC (24.3-30.1); PROTHROMBIN TIME - PATIENT 10.6 SEC (9.8-11.6)
[2016-03-27 13:05] LABS: ANION GAP 6 MEQ/L (5-15); BICARBONATE 29.7 MEQ/L (21.0-32.0); BLOOD UREA NITROGEN 16 MG/DL (7-18); CHLORIDE 107 MEQ/L (98-107); GLOMERULAR FILTRATION RATE 71 ML/MIN (>89); GLUCOSE,FASTING 108 MG/DL (74-99); POTASSIUM 4.1 MEQ/L (3.5-5.1); SODIUM (NA) 143 MEQ/L (136-145)
[2016-03-27 13:12] LABS: BLOOD, URINE NEG (NEG); COMMENT (UR) CULT NOT INDICATED; CULTURE IF INDICATED CULT NOT INDICATED; GLUCOSE,URINE NEG (NEG); KETONE, URINE NEG (NEG); NITRITE,URINE NEG (NEG); SQUAMOUS EPITHELIAL CELL URINE <1 /hpf (0-5); TRANSITIONAL EPI CELLS, URINE <1 /hpf; URINE COLOR YELLOW (YELLW/STRAW)
--- NOTE | 2016-03-27 13:54 | RADRPT ---
EXAM DATE/TIME: 03/27/2016 13:40 [facility] COMPARISON: No previous studies available for comparison. INDICATIONS : Evaluate for penumonia, pneumothorax, or communicable disease. Pre op for aortic valve replacement. MEDICAL HISTORY : None. SURGICAL HISTORY : None. ENCOUNTER: Initial ACUITY: 1 day PAIN SCORE: 0/10 LOCATION: chest FINDINGS: PA and lateral views of the chest demonstrate the lungs to be symmetrically aerated without evidence of mass, infiltrate or effusion. The cardiomediastinal contours are unremarkable. Osseous structure s are intact. CONCLUSION: 1. No acute cardiopulmonary findings. Speedy May MD on March 27, 2016 at 13:52 Board Certified Radiologist. This report was verified electronically.
[2016-03-27 16:29] LABS: MRSA PCR NEGATIVE (NEGATIVE); STAPH AUREUS PCR NEGATIVE (NEGATIVE)
--- NOTE | 2016-03-27 16:49 | RADRPT ---
EXAM DATE/TIME: 03/27/2016 13:13 [facility] COMPARISON: No previous studies available for comparison. INDICATIONS : Preop. MEDICAL HISTORY : Diabetic. Glaumcoma. Heart murmur. SURGICAL HISTORY : Lithotrypsy. Left shoulder and right hip surgery. ENCOUNTER: Initial ACUITY: 1 day PAIN SCORE: 0/10 LOCATION: Bilateral neck PEAK SYSTOLIC VELOCITIES (cm/sec): ICA/CCA RATIO: Right: 1.2 Left: 1.7 ICA: Right: 76 Left: 124 CCA: Right: 65 Left: 70 ECA: Right: 40 Left: 106 VERTEBRAL: Right: 28 antegrade Left: 59 antegrade Elevated flow velocities and ICA/CCA ratios have been found to correlate with increased degrees of vessel stenosis, calculated as percentage of diameter relative to a normal segment of distal ICA/CCA FINDINGS: RIGHT CAROTID: No significant stenosis is visualized. Mild plaque. The waveforms are within normal limits. LEFT CAROTID: No significant stenosis is visualized. Mild plaque. The waveforms are within normal limits. VERTEBRAL ARTERIES: Antegrade flow is seen in both vertebral arteries. MISCELLANEOUS: None. CONCLUSION: No hemodynamically significant stenosis in either carotid artery. Luis Manzanares MD on March 27, 2016 at 16:46 Board Certified Radiologist. This report was verified electronically.
[2016-03-27 18:40] LABS: HEMOGLOBIN A1a 1.1 %; HEMOGLOBIN A1b 0.7 %; HEMOGLOBIN Ao 85.3 %; HEMOGLOBIN F 1.1 %; HEMOGLOBIN LA1C 2.1 %; HEMOGLOBIN P3 3.7 %
--- NOTE | 2016-03-28 15:28 | EKG ---
Date Performed: 03/27/2016 Time Performed: 11:50:07 PTAGE: 75 years EKG: Sinus rhythm RIGHT BUNDLE BRANCH BLOCK ABNORMAL ECG PREVIOUS TRACING 05/15/2005 14.11.17 Compared to previous tracing, the patient has a new right bundle branch block DOCTOR: Darby Galindo Interpretating Date/Time 03/28/2016 15:27:38
--- NOTE | 2016-03-31 11:00 | RSPPFT ---
DATE OF PROCEDURE: 03/27/16 COMMENTS: Spirometry with FVC of 3.6 predicted 3.0, FEV1 of 2.9 predicted 2.1, FEV1/FVC ratio 81% predicted 76%. IMPRESSION: On the basis of the above, patient spirometry is within the predicted range.
--- NOTE | 2016-03-31 15:28 | PD.CAR.PN ---
CVT Progress Note Subjective/Hospital Course: sts data discussed with pt RISK SCORES About the STS Risk Calculator Procedure: AV Replacement Risk of Mortality: 0.876% Morbidity or Mortality: 8.132% Long Length of Stay: 2.78% Short Length of Stay: 55.529% Permanent Stroke: 0.634% Prolonged Ventilation: 4.217% DSW Infection: 0.121% Renal Failure: 1.579% Reoperation: 4.205% Result Diagram: 03/27/16 1115 03/27/16 1115 Vanna Abebe Mar 31, 2016 15:28
== END ==
LOC: CPRE 10:54
PROVIDERS: ATTEND Thoracic Surgery (Cardiothoracic Vascular Surgery)
DX: Z01.812 Encounter for preprocedural laboratory examination (principal); Z01.810 Encounter for preprocedural cardiovascular examination; Z01.811 Encounter for preprocedural respiratory examination; I35.0 Nonrheumatic aortic (valve) stenosis; I45.10 Unspecified right bundle-branch block; R94.31 Abnormal electrocardiogram [ECG] [EKG]; E11.9 Type 2 diabetes mellitus without complications; R01.1 Cardiac murmur, unspecified
CPT/HCPCS: 36415; 71020; 80048; 81001; 83036; 85025; 85610; 85730; 87640; 87641; 93005; 93880; 94010